=== PATIENT | female | born 1950 | race African-American/Black ===

== ENCOUNTER 2023-06-28 23:01 | Inpatient (IN) | payer MEDICARE, OTHER ==
[~2023-06-28 23:01] MED LIST: Iopamidol 370 76% 100 ML VIAL ONE
[2023-06-28] MEDS ORDERED: Ipratropium/Albuterol 3 ML NEB ONE (23:17)
[2023-06-28] MEDS ORDERED: Magnesium 2 GM/50 ML BAG (IN WATER) ONE (23:18)
[2023-06-28] MEDS ORDERED: methylPREDNISolone Sod Succ/PF 125 MG/2 ML VIAL ONE (23:18)
[2023-06-28 23:57] LABS: #Basophils 0.1 thou/uL (0.0-0.2); #Monocytes 1.2 thou/uL (0.11-0.59); #Neutrophils 14.8 thou/uL (1.40-6.50); %Basophils 0.3 % (0.0-1.0); %Eosinophils 0.2 % (0.0-10.0); %Monocytes 6.6 % (0.0-10.0); %Neutrophils 81.3 % (42.0-75.0); Hematocrit 33.2 % (36.0-47.0); Hemoglobin 10.9 g/dL (12.0-16.0); Mean Corpuscular HGB CONC 32.8 g/dL (32.0-36.0); Mean Corpuscular Hemoglobin 28.7 pg (27.0-31.0); Mean Corpuscular Volume 87.4 fl (78.0-98.0); Mean Platelet Volume 10.6 fL (7.4-10.4); Platelet Count 308 10x3/uL (130-400); RBC Distribution Width 14.2 % (11.5-14.5); White Blood Cell (WBC) Count 18.2 10x3/uL (4.8-10.8)
[2023-06-29 00:18] LABS: SARS-CoV-2 NAA Rapid Test Not Detected (NotDetected)
[2023-06-29 00:20] LABS: ALT (SGPT) 58 U/L (8-55); AST (SGOT) 34 U/L (5-34); Albumin 3.5 g/dL (3.4-4.8); Alkaline Phosphatase 116 U/L (40-110); Anion Gap 18 mmol/L (10-20); BUN (Urea Nitrogen) 10 mg/dL (9.8-20.1); Bilirubin, Total 0.6 mg/dL (0.2-1.2); Calc. Creatinine Clearance 0 mL/min (70-130); Calcium 8.9 mg/dL (7.8-10.44); Carbon Dioxide 23 mmol/L (23-31); Chloride 97 mmol/L (98-107); Estimated GFR 82; Globulin 4.2 g/dL (2.4-3.5); Glucose 209 mg/dL (83-110); Lipase 37 U/L (8-78); Magnesium 2.1 mg/dL (1.6-2.6); Potassium 3.5 mmol/L (3.5-5.1); Protein, Total 7.7 g/dL (5.8-8.1); Sodium 134 mmol/L (136-145)
[2023-06-29 00:24] LABS: Troponin I 0.059 ng/mL (< 0.028)
[2023-06-29] MEDS ORDERED: Piperacillin/Tazobactam 3.375 GM VIAL ONE (00:38)
[2023-06-29] MEDS ORDERED: Sodium Chloride 0.9% 100 ML ONE (00:38)
[2023-06-29] MEDS ORDERED: Ketorolac Tromethamine 30 MG/ML VIAL ONE (01:36)
[2023-06-29] MEDS ORDERED: Vancomycin 1 GM/200 ML (FROZEN) BAG ONE (01:37)
[2023-06-29] MEDS ORDERED: Lactated Ringer's 1,000 ML IV SCH (03:15)
[2023-06-29] MEDS ORDERED: Ipratropium/Albuterol 3 ML NEB NEB PRN (03:28)
[2023-06-29] MEDS ORDERED: Sodium Chloride 0.9% 1,000 ML IV SCH (03:30)
[2023-06-29] MEDS ORDERED: Electrolyte Replacement Protocol FS SCH (03:45)
[2023-06-29 04:03] LABS: Lactic Acid 0.8 mmol/L (0.5-2.2)
[2023-06-29] MEDS ORDERED: Acetaminophen 650 MG Suppository PR PRN (04:03)
[2023-06-29] MEDS ORDERED: Dextrose 50% Abboject 50 ML SYRINGE SLOW IVP PRN (04:04)
[2023-06-29] MEDS ORDERED: HumaLOG 300 UNITS/3 ML VIAL SC PRN (04:04)
[2023-06-29] MEDS ORDERED: Glucagon 1 MG/ML KIT IM PRN (04:04)
[2023-06-29] MEDS ORDERED: Dextrose 5% in Water 1,000 ML IV PRN (04:04)
[2023-06-29 04:13] LABS: Troponin I 0.269 ng/mL (< 0.028)
[2023-06-29] MEDS: cefTRIAXone\\ROCEPHIN 1 GM in Sodium Chloride 0.9% 100 ML IVPB SCH (04:13)
[2023-06-29 04:30] LABS: Bacteria/HPF None Seen HPF (None Seen); Bilirubin Negative (Negative); Blood, Urine Negative (Negative); CAUTI Indications for Culture Pelvic or flank pain; Clarity Clear (Clear); Glucose, Urine (Dipstick) Normal (Negative); Ketone, Urine Trace mg/dL (Negative); Leukocyte Negative Leu/uL (Negative); Nitrite Negative (Negative); Protein, Urine (Dipstick) 20 mg/dL (Neg-Trace); Urobilinogen Normal mg/dL (Less than 2); WBC/HPF 0-3 HPF (0-3); pH, Urine 5.5 (5.0-9.0)
[2023-06-29 04:31] LABS: Specific Gravity, Urine Greater than 1.060 (1.002-1.036)
[2023-06-29 04:33] LABS: Urine Culture Reflex No No
[2023-06-29 04:35] LABS: Legionella Urinary Ag Negative (Negative)
[2023-06-29 04:36] LABS: Strep pneumo Urine Ag NEGATIVE (NEGATIVE)
[2023-06-29] MEDS: Azithromycin 500 MG in Sodium Chloride 0.9% 250 ML 250 ML IVPB SCH (05:50)
[2023-06-29] MEDS: HumaLOG 300 UNITS/3 ML VIAL SC PRN ×3 (06:38→17:16)
[2023-06-29] MEDS: Pantoprazole 40 MG VIAL IVP SCH ×2 (08:25→20:13)
[2023-06-29] MEDS: Famotidine 20 MG TAB PO SCH ×2 (08:25→20:12)
[2023-06-29] MEDS ORDERED: Aspirin Chewable 81 MG TAB PO SCH (09:30)
[2023-06-29] MEDS ORDERED: Furosemide 40 MG/4 ML VIAL SLOW IVP SCH (09:30)
[2023-06-29] MEDS: Nystatin Powder 15 GM BOT TOP SCH ×2 (09:58→20:13)
[2023-06-29 10:20] LABS: Troponin I 0.197 ng/mL (< 0.028)
[2023-06-29 13:46] LABS: Troponin I 0.133 ng/mL (< 0.028)
[2023-06-29] MEDS: Gabapentin 300 MG CAP PO SCH ×2 (14:11→20:12)
[2023-06-29 19:55] LABS: Troponin I 0.119 ng/mL (< 0.028)
[2023-06-29] MEDS: Atorvastatin Calcium 40 MG TAB PO SCH (20:12)
[2023-06-30] MEDS: cefTRIAXone\\ROCEPHIN 1 GM in Sodium Chloride 0.9% 100 ML IVPB SCH (04:15)
[2023-06-30] MEDS: Azithromycin 500 MG in Sodium Chloride 0.9% 250 ML 250 ML IVPB SCH (06:22)
[2023-06-30 08:09] LABS: #Monocytes 1.2 thou/uL (0.11-0.59); #Neutrophils 10.9 thou/uL (1.40-6.50); %Basophils 0.1 % (0.0-1.0); %Eosinophils 0.1 % (0.0-10.0); %Lymphocytes 10.7 % (21.0-51.0); %Monocytes 8.5 % (0.0-10.0); %Neutrophils 80.2 % (42.0-75.0); Hematocrit 31.1 % (36.0-47.0); Hemoglobin 10.2 g/dL (12.0-16.0); Mean Corpuscular HGB CONC 32.8 g/dL (32.0-36.0); Mean Corpuscular Hemoglobin 28.2 pg (27.0-31.0); Mean Corpuscular Volume 85.9 fl (78.0-98.0); Mean Platelet Volume 11.7 fL (7.4-10.4); Platelet Count 230 10x3/uL (130-400); Red Blood Cell (RBC) Count 3.62 mill/uL (4.20-5.40); White Blood Cell (WBC) Count 13.5 10x3/uL (4.8-10.8)
[2023-06-30] MEDS: Acetaminophen 325 MG TAB PO PRN ×3 (08:17→20:13)
[2023-06-30] MEDS: Famotidine 20 MG TAB PO SCH ×2 (08:17→20:12)
[2023-06-30] MEDS: Aspirin Chewable 81 MG TAB PO SCH (08:17)
[2023-06-30] MEDS: Gabapentin 300 MG CAP PO SCH ×3 (08:18→20:12)
[2023-06-30] MEDS: Amlodipine 5 MG TAB PO SCH (08:18)
[2023-06-30] MEDS: Pantoprazole 40 MG VIAL IVP SCH ×2 (08:19→20:13)
[2023-06-30] MEDS: Nystatin Powder 15 GM BOT TOP SCH ×2 (08:19→20:16)
[2023-06-30 08:33] LABS: Anion Gap 15 mmol/L (10-20); BUN (Urea Nitrogen) 13 mg/dL (9.8-20.1); Calc. Creatinine Clearance 103 mL/min (70-130); Calcium 8.7 mg/dL (7.8-10.44); Carbon Dioxide 25 mmol/L (23-31); Chloride 96 mmol/L (98-107); Estimated GFR 91; Glucose 143 mg/dL (83-110); Sodium 132 mmol/L (136-145)
[2023-06-30] MEDS: Ampicillin 2 GM in Sodium Chloride 0.9% 100 ML IVPB SCH ×3 (14:25→21:18)
[2023-06-30] MEDS: cefTRIAXone\\ROCEPHIN 2 GM in Sodium Chloride 0.9% 100 ML IVPB SCH (15:47)
[2023-06-30] MEDS: HumaLOG 300 UNITS/3 ML VIAL SC PRN (16:25)
[2023-06-30] MEDS: Atorvastatin Calcium 40 MG TAB PO SCH (20:12)
[2023-07-01] MEDS: Ampicillin 2 GM in Sodium Chloride 0.9% 100 ML IVPB SCH ×6 (02:27→21:33)
[2023-07-01] MEDS: cefTRIAXone\\ROCEPHIN 2 GM in Sodium Chloride 0.9% 100 ML IVPB SCH ×2 (04:05→15:40)
[2023-07-01] MEDS ORDERED: Morphine 2 MG/ML VIAL SLOW IVP SCH ×2 (04:45→13:15)
[2023-07-01] MEDS: Calcium Carbonate 500 MG ChewTAB PO PRN (06:41)
[2023-07-01] MEDS: Ondansetron ODT 4 MG TAB PO PRN (06:42)
[2023-07-01] MEDS ORDERED: PROPOFOL 200 MG/20 ML VIAL ONE (07:57)
[2023-07-01] MEDS ORDERED: Empagliflozin 10 MG TAB PO SCH (09:00)
[2023-07-01] MEDS ORDERED: Furosemide 40 MG/4 ML VIAL SLOW IVP SCH (09:15)
[2023-07-01] MEDS: Simethicone Chewable 80 MG TAB PO PRN ×2 (09:59→20:10)
[2023-07-01] MEDS: Aspirin Chewable 81 MG TAB PO SCH (10:04)
[2023-07-01] MEDS: Amlodipine 5 MG TAB PO SCH (10:04)
[2023-07-01] MEDS: Pantoprazole 40 MG VIAL IVP SCH ×2 (10:08→20:10)
[2023-07-01] MEDS: Famotidine 20 MG TAB PO SCH ×2 (10:08→20:09)
[2023-07-01] MEDS: Gabapentin 300 MG CAP PO SCH ×3 (10:10→20:10)
[2023-07-01] MEDS: Nystatin Powder 15 GM BOT TOP SCH ×2 (10:16→20:10)
[2023-07-01] MEDS ORDERED: Iopamidol-370 76% 500 ML MDV (1 ML CHARGE) ONE (10:55)
[2023-07-01] MEDS ORDERED: Morphine 4 MG/ML VIAL ONE (12:54)
[2023-07-01] MEDS: Acetaminophen 325 MG TAB PO PRN (20:09)
[2023-07-01] MEDS: Atorvastatin Calcium 40 MG TAB PO SCH (20:10)
[2023-07-02] MEDS: Ampicillin 2 GM in Sodium Chloride 0.9% 100 ML IVPB SCH ×6 (02:13→21:44)
[2023-07-02] MEDS: cefTRIAXone\\ROCEPHIN 2 GM in Sodium Chloride 0.9% 100 ML IVPB SCH ×2 (04:14→16:00)
[2023-07-02] MEDS: HumaLOG 300 UNITS/3 ML VIAL SC PRN (06:11)
[2023-07-02] MEDS: Calcium Carbonate 500 MG ChewTAB PO PRN (06:15)
[2023-07-02] MEDS ORDERED: Morphine 2 MG/ML VIAL SLOW IVP SCH (06:45)
[2023-07-02] MEDS: Famotidine 20 MG TAB PO SCH (08:42)
[2023-07-02] MEDS: Gabapentin 300 MG CAP PO SCH ×3 (08:42→21:45)
[2023-07-02] MEDS: Simethicone Chewable 80 MG TAB PO PRN (08:43)
[2023-07-02] MEDS: Aspirin Chewable 81 MG TAB PO SCH (08:43)
[2023-07-02] MEDS: Pantoprazole 40 MG VIAL IVP SCH ×2 (08:43→21:44)
[2023-07-02] MEDS ORDERED: Losartan 25 MG TAB PO SCH (09:00)
[2023-07-02] MEDS ORDERED: Non-Formulary Item 1 EACH (Losartan/Hydrochlorothiazide [Losartan-Hctz 100-25 Mg Tab] 1 E PO SCH (09:00)
[2023-07-02] MEDS ORDERED: Hydrochlorothiazide 25 MG TAB PO SCH (09:00)
[2023-07-02] MEDS: Morphine 4 MG/ML VIAL SLOW IVP PRN (09:06)
[2023-07-02] MEDS: Ondansetron ODT 4 MG TAB PO PRN (09:13)
[2023-07-02 09:48] LABS: Anion Gap 14 mmol/L (10-20); BUN (Urea Nitrogen) 8 mg/dL (9.8-20.1); Calc. Creatinine Clearance 104 mL/min (70-130); Calcium 8.2 mg/dL (7.8-10.44); Carbon Dioxide 27 mmol/L (23-31); Chloride 98 mmol/L (98-107); Estimated GFR 91; Glucose 182 mg/dL (83-110); Potassium 4.2 mmol/L (3.5-5.1); Sodium 135 mmol/L (136-145)
[2023-07-02 10:27] LABS: #Monocytes 1.2 thou/uL (0.11-0.59); #Neutrophils 18.2 thou/uL (1.40-6.50); %Lymphocytes 3.8 % (21.0-51.0); %Monocytes 5.9 % (0.0-10.0); %Neutrophils 89.3 % (42.0-75.0); Hematocrit 20.9 % (36.0-47.0); Hemoglobin 7.1 g/dL (12.0-16.0); Mean Corpuscular Hemoglobin 28.9 pg (27.0-31.0); Mean Platelet Volume 10.6 fL (7.4-10.4); Platelet Count 260 10x3/uL (130-400); RBC Distribution Width 14.3 % (11.5-14.5); Red Blood Cell (RBC) Count 2.46 mill/uL (4.20-5.40); White Blood Cell (WBC) Count 20.4 10x3/uL (4.8-10.8)
[2023-07-02] MEDS: Empagliflozin 10 MG TAB PO SCH (10:45)
[2023-07-02] MEDS: Amlodipine 5 MG TAB PO SCH (10:45)
[2023-07-02] MEDS ORDERED: Iopamidol 370 76% 100 ML VIAL ONE (10:45)
[2023-07-02] MEDS: Nystatin Powder 15 GM BOT TOP SCH ×2 (10:49→21:47)
[2023-07-02 14:25] LABS: Hematocrit 20.6 % (36.0-47.0); Platelet Count 240 10x3/uL (130-400)
[2023-07-02 15:13] LABS: Hematocrit 21.6 % (36.0-47.0); Hemoglobin 7.1 g/dL (12.0-16.0); Manual Diff?? YES; Mean Corpuscular HGB CONC 32.9 g/dL (32.0-36.0); Mean Corpuscular Hemoglobin 28.3 pg (27.0-31.0); Mean Corpuscular Volume 86.1 fl (78.0-98.0); Mean Platelet Volume 11.1 fL (7.4-10.4); Platelet Count 244 10x3/uL (130-400); RBC Distribution Width 14.3 % (11.5-14.5); Red Blood Cell (RBC) Count 2.51 mill/uL (4.20-5.40); White Blood Cell (WBC) Count 25.1 10x3/uL (4.8-10.8)
[2023-07-02 15:14] LABS: Delete Auto Diff?? YES
[2023-07-02] MEDS ORDERED: Lidocaine 1% (PF) 30 ML VIAL ONE (15:30)
[2023-07-02 15:37] LABS: CellaVision Operator ID LAB.MJL; Lymphocytes 2 % (21-51); Monocytes 4 % (0-10); Neutrophil 94 % (42-75); Platelet Adequacy Comment Platelets Normal; Polychromasia SLIGHT = 2-3 cells HPF (0-2); Total Cell Count 100
[2023-07-02] MEDS ORDERED: cefTRIAXone\\ROCEPHIN 2 GM in Sodium Chloride 0.9% 100 ML IVPB SCH (20:15)
[2023-07-02] MEDS: Atorvastatin Calcium 40 MG TAB PO SCH (21:45)
[2023-07-03 01:06] LABS: #Monocytes 1.5 thou/uL (0.11-0.59); #Neutrophils 20.6 thou/uL (1.40-6.50); %Basophils 0.1 % (0.0-1.0); %Lymphocytes 5.3 % (21.0-51.0); %Monocytes 6.2 % (0.0-10.0); %Neutrophils 87.1 % (42.0-75.0); Hematocrit 25.4 % (36.0-47.0); Hemoglobin 8.6 g/dL (12.0-16.0); Mean Corpuscular HGB CONC 33.9 g/dL (32.0-36.0); Mean Corpuscular Hemoglobin 29.1 pg (27.0-31.0); Mean Corpuscular Volume 85.8 fl (78.0-98.0); Mean Platelet Volume 10.4 fL (7.4-10.4); Platelet Count 230 10x3/uL (130-400); RBC Distribution Width 13.8 % (11.5-14.5); Red Blood Cell (RBC) Count 2.96 mill/uL (4.20-5.40); White Blood Cell (WBC) Count 23.6 10x3/uL (4.8-10.8)
[2023-07-03] MEDS: Ampicillin 2 GM in Sodium Chloride 0.9% 100 ML IVPB SCH ×6 (02:05→23:01)
[2023-07-03 04:51] LABS: #Monocytes 1.6 thou/uL (0.11-0.59); #Neutrophils 20.8 thou/uL (1.40-6.50); %Basophils 0.1 % (0.0-1.0); %Lymphocytes 5.7 % (21.0-51.0); %Monocytes 6.4 % (0.0-10.0); %Neutrophils 86.6 % (42.0-75.0); Hematocrit 25.3 % (36.0-47.0); Hemoglobin 8.6 g/dL (12.0-16.0); Mean Corpuscular Hemoglobin 29.3 pg (27.0-31.0); Mean Corpuscular Volume 86.1 fl (78.0-98.0); Mean Platelet Volume 10.7 fL (7.4-10.4); Platelet Count 233 10x3/uL (130-400); RBC Distribution Width 14.1 % (11.5-14.5); Red Blood Cell (RBC) Count 2.94 mill/uL (4.20-5.40); White Blood Cell (WBC) Count 24.1 10x3/uL (4.8-10.8)
[2023-07-03 05:09] LABS: INR-International Normal Ratio 1.4; PTT 39.3 sec (22.9-36.1); Prothrombin Time 17.7 sec (12.0-14.7)
[2023-07-03 05:19] LABS: Anion Gap 13 mmol/L (10-20); BUN (Urea Nitrogen) 12 mg/dL (9.8-20.1); Calc. Creatinine Clearance 78 mL/min (70-130); Calcium 8.2 mg/dL (7.8-10.44); Carbon Dioxide 29 mmol/L (23-31); Chloride 97 mmol/L (98-107); Estimated GFR 64; Glucose 167 mg/dL (83-110); Potassium 4.3 mmol/L (3.5-5.1); Sodium 135 mmol/L (136-145)
[2023-07-03] MEDS: Morphine 4 MG/ML VIAL SLOW IVP PRN (09:33)
[2023-07-03] MEDS: Pantoprazole 40 MG VIAL IVP SCH ×2 (09:46→20:48)
[2023-07-03] MEDS: Gabapentin 300 MG CAP PO SCH ×3 (09:46→20:47)
[2023-07-03] MEDS: Empagliflozin 10 MG TAB PO SCH (09:46)
[2023-07-03] MEDS: Aspirin Chewable 81 MG TAB PO SCH (09:47)
[2023-07-03] MEDS: cefTRIAXone\\ROCEPHIN 2 GM in Sodium Chloride 0.9% 100 ML IVPB SCH ×2 (09:47→20:47)
[2023-07-03] MEDS: Nystatin Powder 15 GM BOT TOP SCH ×2 (09:54→20:23)
[2023-07-03] MEDS: Calcium Carbonate 500 MG ChewTAB PO PRN ×2 (10:13→20:55)
[2023-07-03 12:44] LABS: #Monocytes 1.4 thou/uL (0.11-0.59); #Neutrophils 19.9 thou/uL (1.40-6.50); %Basophils 0.1 % (0.0-1.0); %Eosinophils 0.1 % (0.0-10.0); %Neutrophils 87.6 % (42.0-75.0); Hematocrit 23.3 % (36.0-47.0); Hemoglobin 8.1 g/dL (12.0-16.0); Mean Corpuscular HGB CONC 34.8 g/dL (32.0-36.0); Mean Corpuscular Hemoglobin 29.7 pg (27.0-31.0); Mean Corpuscular Volume 85.3 fl (78.0-98.0); Mean Platelet Volume 10.8 fL (7.4-10.4); Platelet Count 216 10x3/uL (130-400); RBC Distribution Width 14.3 % (11.5-14.5); Red Blood Cell (RBC) Count 2.73 mill/uL (4.20-5.40); White Blood Cell (WBC) Count 22.7 10x3/uL (4.8-10.8)
[2023-07-03] MEDS: Atorvastatin Calcium 40 MG TAB PO SCH (20:48)
[2023-07-04] MEDS: Morphine 4 MG/ML VIAL SLOW IVP PRN ×2 (00:43→06:44)
[2023-07-04] MEDS: Ampicillin 2 GM in Sodium Chloride 0.9% 100 ML IVPB SCH ×6 (03:29→21:50)
[2023-07-04] MEDS: Calcium Carbonate 500 MG ChewTAB PO PRN (06:32)
[2023-07-04 06:54] LABS: #Monocytes 1.4 thou/uL (0.11-0.59); #Neutrophils 18.7 thou/uL (1.40-6.50); %Basophils 0.1 % (0.0-1.0); %Eosinophils 0.1 % (0.0-10.0); %Lymphocytes 4.8 % (21.0-51.0); %Monocytes 6.4 % (0.0-10.0); %Neutrophils 87.1 % (42.0-75.0); Hematocrit 23.2 % (36.0-47.0); Hemoglobin 7.9 g/dL (12.0-16.0); Mean Corpuscular HGB CONC 34.1 g/dL (32.0-36.0); Mean Corpuscular Hemoglobin 29.6 pg (27.0-31.0); Mean Corpuscular Volume 86.9 fl (78.0-98.0); Mean Platelet Volume 10.3 fL (7.4-10.4); Platelet Count 230 10x3/uL (130-400); RBC Distribution Width 14.3 % (11.5-14.5); Red Blood Cell (RBC) Count 2.67 mill/uL (4.20-5.40); White Blood Cell (WBC) Count 21.5 10x3/uL (4.8-10.8)
[2023-07-04 07:18] LABS: Anion Gap 13 mmol/L (10-20); BUN (Urea Nitrogen) 11 mg/dL (9.8-20.1); Calc. Creatinine Clearance 90 mL/min (70-130); Calcium 7.9 mg/dL (7.8-10.44); Carbon Dioxide 29 mmol/L (23-31); Chloride 96 mmol/L (98-107); Estimated GFR 76; Glucose 146 mg/dL (83-110); Potassium 4.4 mmol/L (3.5-5.1); Sodium 134 mmol/L (136-145)
[2023-07-04] MEDS: Gabapentin 300 MG CAP PO SCH ×3 (10:01→21:51)
[2023-07-04] MEDS: Empagliflozin 10 MG TAB PO SCH (10:03)
[2023-07-04] MEDS: Aspirin Chewable 81 MG TAB PO SCH (10:03)
[2023-07-04] MEDS: Pantoprazole 40 MG VIAL IVP SCH ×2 (10:04→21:41)
[2023-07-04] MEDS: cefTRIAXone\\ROCEPHIN 2 GM in Sodium Chloride 0.9% 100 ML IVPB SCH ×2 (10:04→20:50)
[2023-07-04] MEDS: Nystatin Powder 15 GM BOT TOP SCH ×2 (10:05→21:00)
[2023-07-04] MEDS: Acetaminophen 325 MG TAB PO PRN (10:15)
[2023-07-04] MEDS ORDERED: GoLYTELY 4,000 ml Bottle PO SCH (16:00)
[2023-07-04] MEDS ORDERED: Simethicone Chewable 80 MG TAB PO PRN (16:18)
[2023-07-04] MEDS ORDERED: Ipratropium/Albuterol 3 ML NEB ONE (16:27)
[2023-07-04] MEDS ORDERED: Ondansetron PF 4 MG/2 ML Vial IVP PRN (16:29)
[2023-07-04] MEDS ORDERED: Furosemide 40 MG/4 ML VIAL ONE (16:29)
[2023-07-04] MEDS ORDERED: Furosemide 40 MG/4 ML VIAL SLOW IVP SCH (16:30)
[2023-07-04 16:37] LABS: Actual Bicarbonate (HCO3a) 28.1 mEq/L (22-28); Base Excess (BEa) 0.7 mEq/L (-2.0 to +3.0); Calcium, Ionized (arterial) 1.15 mmol/L (1.12-1.30); Carboxyhemoglobin (COHb) 0.6 gm% (0.0-3.0); Hematocrit-ABG 30 % (36.0-47.0); Hemoglobin (Hb) 10.2 g/dL (12.0-16.0); pH, Arterial 7.288 (7.35-7.45)
[2023-07-04 16:56] LABS: Hematocrit 28.1 % (36.0-47.0); Hemoglobin 9.2 g/dL (12.0-16.0); Platelet Count 289 10x3/uL (130-400)
[2023-07-04] MEDS ORDERED: niCARdipine 25 MG in Sodium Chloride 0.9% 250 ML 250 ML IVPB SCH (17:15)
[2023-07-04 17:24] LABS: Troponin I 0.015 ng/mL (< 0.028)
[2023-07-04 17:34] LABS: ALT (SGPT) 25 U/L (8-55); AST (SGOT) 17 U/L (5-34); Albumin 3.1 g/dL (3.4-4.8); Alkaline Phosphatase 98 U/L (40-110); Anion Gap 17 mmol/L (10-20); BUN (Urea Nitrogen) 11 mg/dL (9.8-20.1); Bilirubin, Total 0.3 mg/dL (0.2-1.2); Calc. Creatinine Clearance 87 mL/min (70-130); Calcium 8.5 mg/dL (7.8-10.44); Carbon Dioxide 27 mmol/L (23-31); Chloride 94 mmol/L (98-107); Estimated GFR 73; Glucose 183 mg/dL (83-110); Magnesium 2.2 mg/dL (1.6-2.6); Potassium 4.5 mmol/L (3.5-5.1); Protein, Total 7.1 g/dL (5.8-8.1); Sodium 133 mmol/L (136-145)
[2023-07-04] MEDS ORDERED: hydrALAZINE 20 MG/ML VIAL SLOW IVP PRN (17:37)
[2023-07-04 17:46] LABS: Puncture Site RRA
[2023-07-04] MEDS: ALPRAZolam 0.5 MG TAB PO PRN (17:49)
[2023-07-04] MEDS ORDERED: Labetalol HCl 100 MG/20 ML VIAL SLOW IVP PRN (18:04)
[2023-07-04] MEDS: Atorvastatin Calcium 40 MG TAB PO SCH (21:51)
[2023-07-05] MEDS: Ampicillin 2 GM in Sodium Chloride 0.9% 100 ML IVPB SCH ×4 (01:26→14:58)
[2023-07-05] MEDS: ALPRAZolam 0.5 MG TAB PO PRN ×2 (01:27→13:15)
[2023-07-05 05:10] LABS: #Monocytes 1.1 thou/uL (0.11-0.59); #Neutrophils 16.7 thou/uL (1.40-6.50); %Basophils 0.2 % (0.0-1.0); %Eosinophils 0.2 % (0.0-10.0); %Lymphocytes 5.6 % (21.0-51.0); %Monocytes 5.6 % (0.0-10.0); Hematocrit 23.7 % (36.0-47.0); Hemoglobin 7.8 g/dL (12.0-16.0); Mean Corpuscular HGB CONC 32.9 g/dL (32.0-36.0); Mean Corpuscular Hemoglobin 28.9 pg (27.0-31.0); Mean Corpuscular Volume 87.8 fl (78.0-98.0); Mean Platelet Volume 10.5 fL (7.4-10.4); Platelet Count 249 10x3/uL (130-400); RBC Distribution Width 14.4 % (11.5-14.5); White Blood Cell (WBC) Count 19.2 10x3/uL (4.8-10.8)
[2023-07-05 05:18] VITALS: BMI 34.1
[2023-07-05 05:32] LABS: Anion Gap 16 mmol/L (10-20); BUN (Urea Nitrogen) 11 mg/dL (9.8-20.1); Calc. Creatinine Clearance 101 mL/min (70-130); Calcium 8.2 mg/dL (7.8-10.44); Carbon Dioxide 29 mmol/L (23-31); Chloride 96 mmol/L (98-107); Estimated GFR 85; Glucose 104 mg/dL (83-110); Potassium 4.6 mmol/L (3.5-5.1); Sodium 136 mmol/L (136-145)
[2023-07-05] MEDS: Furosemide 40 MG/4 ML VIAL SLOW IVP SCH ×2 (05:59→14:58)
[2023-07-05] MEDS: cefTRIAXone\\ROCEPHIN 2 GM in Sodium Chloride 0.9% 100 ML IVPB SCH (08:35)
[2023-07-05] MEDS: Pantoprazole 40 MG VIAL IVP SCH (08:36)
[2023-07-05] MEDS: Aspirin Chewable 81 MG TAB PO SCH (08:38)
[2023-07-05] MEDS: Empagliflozin 10 MG TAB PO SCH (08:38)
[2023-07-05] MEDS: Gabapentin 300 MG CAP PO SCH ×2 (08:38→15:06)
[2023-07-05] MEDS: Nystatin Powder 15 GM BOT TOP SCH (08:51)
[2023-07-05] MEDS ORDERED: Metoprolol Tartrate 5 MG/5 ML VIAL ONE (13:21)
[2023-07-05] MEDS ORDERED: Propofol 1,000 MG/100 ML VIAL IV ONE (13:46)
[2023-07-05] MEDS ORDERED: PROPOFOL 200 MG/20 ML VIAL ONE (13:53)
[2023-07-05] MEDS ORDERED: Rocuronium Bromide 10 MG/ML (10ML VIAL) ONE (13:53)
[2023-07-05 13:59] VITALS: BP 93/52
[2023-07-05 14:30] LABS: Actual Bicarbonate (HCO3a) 25.6 mEq/L (22-28); Base Excess (BEa) 1.4 mEq/L (-2.0 to +3.0); CO2 Tension 38.6 mmHg (35.0-45.0); Calcium, Ionized (arterial) 1.06 mmol/L (1.12-1.30); Hematocrit-ABG 26 % (36.0-47.0); Hemoglobin (Hb) 8.9 g/dL (12.0-16.0); O2 Tension (PaO2), arterial 211.8 mmHg (> 70.0); Potassium - ABG Lab 4.34 mmol/L (3.70-5.30); pH, Arterial 7.439 (7.35-7.45)
[2023-07-05 14:33] LABS: Puncture Site RRA
[2023-07-05] MEDS ORDERED: Lorazepam 2 MG/ML VIAL ONE (14:45)
[2023-07-05] MEDS ORDERED: Propofol 1,000 MG/100 ML VIAL IV PRN (15:00)
[2023-07-05] MEDS ORDERED: Lorazepam 2 MG/ML VIAL SLOW IVP PRN (15:00)
[2023-07-05] MEDS ORDERED: Propofol BOLUS 1,000 MG/100 ML VIAL IV PRN (15:00)
[2023-07-05] MEDS ORDERED: Fentanyl CADD 100 ML IV SCH (15:00)
[2023-07-05] MEDS ORDERED: DISCONTINUE PREVIOUS NARCOTIC PAIN MEDICATIONS AND BENZODIAZEPINES FS SCH (15:00)
[2023-07-05] MEDS ORDERED: Morphine 2 MG/ML VIAL SLOW IVP PRN (15:00)
[2023-07-05] MEDS ORDERED: Fentanyl BOLUS 250 ML IVPB PRN (15:00)
[2023-07-05 17:46] VITALS: TEMP 98.2
== END 2023-07-05 17:15 | disposition short-term general hospital (02) | DRG 853 ==
LOC: ERS 23:01 → IMCU/EMU 06-29 02:03 → CCU 07-04 18:38
PROVIDERS: ADMIT Student in an Organized Health Care Education/Training Program; ATTEND Family Medicine
PROC: 3E03329 Introduction of Other Anti-infective into Peripheral Vein, Percutaneous Approach (ICD-10-PCS; 2023-06-29)
PROC: 5A09357 Assistance with Respiratory Ventilation, Less than 24 Consecutive Hours, Continuous Positive Airway Pressure (ICD-10-PCS; 2023-06-29)
PROC: B245ZZ4 Ultrasonography of Left Heart, Transesophageal (ICD-10-PCS; 2023-07-01)
PROC: 04L43DZ Occlusion of Splenic Artery with Intraluminal Device, Percutaneous Approach (ICD-10-PCS; principal; 2023-07-02)
PROC: B4101ZZ Fluoroscopy of Abdominal Aorta using Low Osmolar Contrast (ICD-10-PCS; 2023-07-02)
PROC: B4131ZZ Fluoroscopy of Splenic Arteries using Low Osmolar Contrast (ICD-10-PCS; 2023-07-02)
PROC: B41J1ZZ Fluoroscopy of Other Lower Arteries using Low Osmolar Contrast (ICD-10-PCS; 2023-07-02)
PROC: 4A023N7 Measurement of Cardiac Sampling and Pressure, Left Heart, Percutaneous Approach (ICD-10-PCS; 2023-07-02)
PROC: B2011ZZ Plain Radiography of Multiple Coronary Arteries using Low Osmolar Contrast (ICD-10-PCS; 2023-07-02)
PROC: B2051ZZ Plain Radiography of Left Heart using Low Osmolar Contrast (ICD-10-PCS; 2023-07-02)
PROC: 30233N1 Transfusion of Nonautologous Red Blood Cells into Peripheral Vein, Percutaneous Approach (ICD-10-PCS; 2023-07-02)
PROC: 4A133R1 Monitoring of Arterial Saturation, Peripheral, Percutaneous Approach (ICD-10-PCS; 2023-07-04)
PROC: 5A1935Z Respiratory Ventilation, Less than 24 Consecutive Hours (ICD-10-PCS; 2023-07-05)
PROC: 0BH17EZ Insertion of Endotracheal Airway into Trachea, Via Natural or Artificial Opening (ICD-10-PCS; 2023-07-05)
DX: A41.81 Sepsis due to Enterococcus (principal); I21.A1 Myocardial infarction type 2; J18.9 Pneumonia, unspecified organism; J96.01 Acute respiratory failure with hypoxia; I33.0 Acute and subacute infective endocarditis; E87.1 Hypo-osmolality and hyponatremia; E87.20 Acidosis, unspecified; M46.26 Osteomyelitis of vertebra, lumbar region; I74.8 Embolism and thrombosis of other arteries; E78.5 Hyperlipidemia, unspecified; E11.9 Type 2 diabetes mellitus without complications; G89.29 Other chronic pain; E66.9 Obesity, unspecified; F17.210 Nicotine dependence, cigarettes, uncomplicated; F19.10 Other psychoactive substance abuse, uncomplicated; B95.2 Enterococcus as the cause of diseases classified elsewhere; I08.3 Combined rheumatic disorders of mitral, aortic and tricuspid valves; I11.0 Hypertensive heart disease with heart failure; I50.9 Heart failure, unspecified; R53.81 Other malaise; M46.47 Discitis, unspecified, lumbosacral region; Z68.34 Body mass index [BMI] 34.0-34.9, adult; Z85.038 Personal history of other malignant neoplasm of large intestine; Z85.048 Personal history of other malignant neoplasm of rectum, rectosigmoid junction, and anus; Z92.21 Personal history of antineoplastic chemotherapy; Z88.5 Allergy status to narcotic agent; Z11.52 Encounter for screening for COVID-19; D73.5 Infarction of spleen
CPT/HCPCS: 36245; 36246; 36415; 36416; 36430; 36600; 37244; 71045; 71275; 72141; 72148; 72195; 74177; 75726; 75774; 80048; 80053; 81001; 82378; 82805; 83036; 83605; 83690; 83735; 83880; 84443; 84484; 85025; 85379; 85610; 85730; 86140; 86850; 86900; 86901; 87040; 87077; 87149; 87186; 87449; 87633; 87899; 93005; 93010; 93306; 93312; 93970; 94002; 94640; 96365; 96367; 96375; C1758; C1760; C1769; C1887; C1889; C1894; C9113; J0290; J0456; J0696; J1650; J1815; J1885; J1940; J2001; J2060; J2270; J2272; J2543; J2704; J2930; J3370-JW; J3475; J3490; J7050; J7620; P9016; Q0162; Q9967

== ENCOUNTER 2023-07-29 18:04 | Emergency (ER) | payer OTHER, MEDICARE ==
[~2023-07-29 18:04] MED LIST changes: -Iopamidol 370 76% 100 ML VIAL ONE; +Iopamidol-370 76% 500 ML MDV (1 ML CHARGE) ONE
[2023-07-29 18:34] LABS: #Monocytes 0.9 thou/uL (0.11-0.59); %Basophils 0.4 % (0.0-1.0); %Eosinophils 0.4 % (0.0-10.0); %Lymphocytes 11.7 % (21.0-51.0); %Monocytes 11.6 % (0.0-10.0); %Neutrophils 75.1 % (42.0-75.0); Hematocrit 23.6 % (36.0-47.0); Hemoglobin 7.7 g/dL (12.0-16.0); Mean Corpuscular HGB CONC 32.6 g/dL (32.0-36.0); Mean Corpuscular Hemoglobin 28.8 pg (27.0-31.0); Mean Corpuscular Volume 88.4 fl (78.0-98.0); Mean Platelet Volume 10.5 fL (7.4-10.4); Platelet Count 174 10x3/uL (130-400); RBC Distribution Width 16.2 % (11.5-14.5); Red Blood Cell (RBC) Count 2.67 mill/uL (4.20-5.40)
[2023-07-29 18:55] LABS: Bilirubin Negative (Negative); Blood, Urine 3+ (Negative); CAUTI Indications for Culture Pelvic or flank pain; Clarity Turbid (Clear); Glucose, Urine (Dipstick) Normal (Negative); Ketone, Urine Negative (Negative); Leukocyte 25 Leu/uL (Negative); Nitrite Negative (Negative); Protein, Urine (Dipstick) 70 mg/dL (Neg-Trace); RBC/HPF Greater than 50 HPF (0-3); Specific Gravity, Urine 1.009 (1.002-1.036); Squamous Epithelial 0-3 HPF (0-3); Urobilinogen Normal mg/dL (Less than 2); WBC/HPF Greater than 50 HPF (0-3); Yeast-Budding 1+ HPF (None Seen); pH, Urine 6.5 (5.0-9.0)
[2023-07-29 18:57] LABS: Bacteria/HPF 1+ HPF (None Seen)
[2023-07-29 18:58] LABS: Urine Culture Reflex Yes Yes
[2023-07-29 19:00] LABS: ALT (SGPT) 38 U/L (8-55); AST (SGOT) 39 U/L (5-34); Albumin 2.7 g/dL (3.4-4.8); Alkaline Phosphatase 135 U/L (40-110); Anion Gap 14 mmol/L (10-20); BUN (Urea Nitrogen) 14 mg/dL (9.8-20.1); Bilirubin, Total 0.5 mg/dL (0.2-1.2); Calc. Creatinine Clearance 0 mL/min (70-130); Calcium 8.3 mg/dL (7.8-10.44); Carbon Dioxide 36 mmol/L (23-31); Chloride 85 mmol/L (98-107); Estimated GFR 92; Globulin 3.4 g/dL (2.4-3.5); Glucose 124 mg/dL (83-110); Lipase 35 U/L (8-78); Protein, Total 6.1 g/dL (5.8-8.1); Sodium 132 mmol/L (136-145)
[2023-07-29 19:05] LABS: Critical Call Chemistry NUR.LBY @1904; Potassium 2.6 mmol/L (3.5-5.1)
[2023-07-29] MEDS ORDERED: Ondansetron PF 4 MG/2 ML Vial ONE (19:17)
[2023-07-29] MEDS ORDERED: Potassium Bicarbonate/Cit Ac 20 MEQ TAB ONE (19:17)
[2023-07-29] MEDS ORDERED: Morphine 4 MG/ML VIAL ONE (19:17)
[2023-07-29 19:19] LABS: Troponin I 0.047 ng/mL (< 0.028)
[2023-07-29 22:41] LABS: SARS-CoV-2 NAA Rapid Test Not Detected (NotDetected)
== END 2023-07-30 02:46 | disposition short-term general hospital (02) ==
LOC: ERS 18:04
DX: D78.31 Postprocedural hematoma of the spleen following a procedure on the spleen (principal); D73.5 Infarction of spleen; D64.9 Anemia, unspecified; E87.6 Hypokalemia; R33.9 Retention of urine, unspecified; E11.9 Type 2 diabetes mellitus without complications; I10 Essential (primary) hypertension; I48.91 Unspecified atrial fibrillation; E78.5 Hyperlipidemia, unspecified; I25.10 Atherosclerotic heart disease of native coronary artery without angina pectoris; Z86.73 Personal history of transient ischemic attack (TIA), and cerebral infarction without residual deficits; Z79.01 Long term (current) use of anticoagulants; Z79.82 Long term (current) use of aspirin; Z79.84 Long term (current) use of oral hypoglycemic drugs; Z79.899 Other long term (current) drug therapy
CPT/HCPCS: 0240U; 71045; 74177; 80053; 81001; 83690; 84484; 85025; 87086; 93005; 51702; 96374; 96375; J2270; J2405; Q9967

== ENCOUNTER 2024-04-22 11:38 | Emergency (ER) | payer MEDICARE, OTHER ==
[2024-04-22 14:06] LABS: #Basophils 0.03 10x3/uL (0.0-0.2); #Eosinophils Less than 0.03 10x3/uL (0.0-0.7); %Basophils 0.5 % (0.0-1.0); %Eosinophils 0.4 % (0.0-10.0); %Lymphocytes 20.6 % (21.0-51.0); %Monocytes 13.6 % (0.0-10.0); %Neutrophils 64.7 % (42.0-75.0); Hematocrit 35.2 % (36.0-47.0); Hemoglobin 11.8 g/dL (12.0-16.0); Mean Corpuscular HGB CONC 33.5 g/dL (32.0-36.0); Mean Corpuscular Hemoglobin 27.2 pg (27.0-31.0); Mean Corpuscular Volume 81.1 fL (78.0-98.0); Mean Platelet Volume 11.2 fL (7.4-10.4); Platelet Count 209 10x3/uL (130-400); RBC Distribution Width 14.7 % (11.5-14.5); Red Blood Cell (RBC) Count 4.34 mill/uL (4.20-5.40)
[2024-04-22 14:24] LABS: ALT (SGPT) 30 U/L (8-55); AST (SGOT) 28 U/L (5-34); Albumin 3.6 g/dL (3.4-4.8); Alkaline Phosphatase 118 U/L (40-110); Anion Gap 14 mmol/L (10-20); BUN (Urea Nitrogen) 13 mg/dL (9.8-20.1); Bilirubin, Total 0.5 mg/dL (0.2-1.2); Calc. Creatinine Clearance 0 mL/min (70-130); Calcium 9.5 mg/dL (7.8-10.44); Carbon Dioxide 32 mmol/L (23-31); Chloride 96 mmol/L (98-107); Estimated GFR 75; Globulin 3.6 g/dL (2.4-3.5); Glucose 144 mg/dL (83-110); Magnesium 2.1 mg/dL (1.6-2.6); Potassium 3.1 mmol/L (3.5-5.1); Protein, Total 7.2 g/dL (5.8-8.1); Sodium 139 mmol/L (136-145)
[2024-04-22 14:26] LABS: Troponin I 0.025 ng/mL (< 0.028)
[2024-04-22] MEDS ORDERED: Potassium Chloride 20 MEQ TAB ONE (15:35)
== END 2024-04-22 17:14 | disposition home or self-care (01) ==
LOC: ERS 11:38
DX: R55 Syncope and collapse (principal); E11.9 Type 2 diabetes mellitus without complications; I10 Essential (primary) hypertension; F17.210 Nicotine dependence, cigarettes, uncomplicated
CPT/HCPCS: 36415; 70450; 72125; 80053; 83735; 84484; 85025; 93005